=== PATIENT | male | born 1960 | race Caucasian/White ===

== ENCOUNTER 2022-03-19 21:33 | Emergency (ER) | payer OTHER, MEDICAID, SELFPAY ==
[2022-03-19 21:38] VITALS: BP 174/98; PULSE 100; RESP 16; TEMP 36.7; O2SAT 95
--- NOTE | 2022-03-19 21:58 | DI.RAD.S_ITS ---
PROCEDURE: XR CHEST 1V INDICATIONS: Eval for pneumonia TECHNIQUE: One view of the chest was acquired. COMPARISON: [facility], CHEST 1 VIEW, 11/22/2010, 14:57. [facility], CHEST 2 VIEW, 11/23/2010, 6:14. FINDINGS: Surgical changes and devices: None. Lungs and pleura: An incomplete inspiratory result is noted, causing a crowded appearance to the lung markings. No focal infiltrates are seen. No pneumothorax or significant pleural effusions are seen. Mediastinum: Mediastinal contours appear normal. Heart size is normal. Bones and chest wall: No suspicious bony lesions. Overlying soft tissues appear unremarkable. IMPRESSION: Low lung volumes, without focal infiltrates seen on this single view chest. Dictated by: Marlon Camilo M.D. on 03/19/2022 at 21:12 Approved by: Marlon Camilo M.D. on 03/19/2022 at 21:13
--- NOTE | 2022-03-19 22:26 | ED_ITS ---
HPI - General Adult General Chief complaint: Shortness of Breath/Dyspnea Stated complaint: sob, difficulty breathing Time Seen by Provider: 03/19/22 21:58 Source: patient Mode of arrival: Ambulatory History of Present Illness HPI narrative: 61-year-old male who is here for evaluation of fevers, productive cough, problems breathing for the past 24-48 hours. He also describes shortness of breath. No chest pain. No sinus congestion. No prior underlying lung pathology. Has not tried anything for symptoms prior to arrival Related Data Home Medications Medication Instructions Recorded Confirmed lisinopril PO 12/14/21 12/14/21 tamsulosin PO 12/14/21 12/14/21 Previous Rx's Medication Instructions Recorded azithromycin 250 mg tablet See Rx Instructions PO .COMPLEX 12/14/21 Pneumonia #6 tabs azithromycin 250 mg tablet 250 mg PO DAILY 4 days #4 tabs 03/19/22 Allergies Allergy/AdvReac Type Severity Reaction Status Date / Time No Known Drug Allergies Allergy Unverified 12/14/21 16:44 Review of Systems Constitutional Constitutional: Reports system reviewed and no additional complaints, except as documented ENT Ears, Nose, Mouth, and Throat: Reports system reviewed and no additional complaints, except as documented Cardiovascular Cardiovascular: Reports system reviewed and no additional complaints, except as documented Respiratory Respiratory: Reports system reviewed and no additional complaints, except as documented Patient History Social History Smoking Status: Current every day smoker alcohol intake: former Smoking Status: Current every day smoker tobacco type: cigarettes alcohol intake frequency: a few times a month Substance Use Type: marijuana Exam Initial Vital Signs Initial Vital Signs: Vital Signs Temperature 98.1 F 03/19/22 21:38 Pulse Rate 100 H 03/19/22 21:38 Respiratory Rate 16 03/19/22 21:38 Blood Pressure 174/98 H 03/19/22 21:38 Pulse Oximetry 95 03/19/22 21:38 Oxygen Delivery Method 03/19/22 21:38 HENMT Head: normal to inspection and normocephalic Resp Effort & Inspection: not labored, no respiratory distress and tachypneic Auscultation: rales, rhonchi and no wheezes Cardio Rate: regular rate Course Orders Ordered: ED Orders 03/19/22 21:58 XR chest 1V Stat Discontinued Medications Azithromycin (Azithromycin 250 Mg Tablet) 500 mg PO NOW ONE Stop: 03/19/22 22:28 Last Admin: 03/19/22 22:39 Dose: 500 mg Documented By: STEVEN Vital Signs Vital signs: Vital Signs - 8 hr 03/19/22 21:38 03/19/22 22:39 Temperature 98.1 F 97.8 F Pulse Rate 100 H 98 H Respiratory Rate 16 16 Blood Pressure 174/98 H 155/82 H Pulse Oximetry 95 94 Oxygen Delivery Method Room Air Room Air Medical Decision Making Differential Diagnosis Differential Diagnosis: Pneumonia, ACS, CHF, COPD, bronchitis, flu, and others Condition is:: Well Controlled Imaging Data Chest x-ray: Attestation: I personally reviewed and interpreted this imaging study as follows: My Impression: No focal infiltrates Radiologist's Impression: [address] [address] XRay Report Signed Patient: Anthony Sorto MR#: [id number] : 1960 Acct:[id number] Age/Sex: 61 / M Date of Service: 03/19/22 Loc: ED Accession Number: [id number] ?? Procedure: XR chest 1V Ordering Provider: Babatunde Vazquez D.O. PROCEDURE:? XR CHEST 1V ? INDICATIONS:? Eval for pneumonia ? TECHNIQUE:? One view of the chest was acquired.? ? COMPARISON:? [facility], CHEST 1 VIEW, 11/22/2010, 14:57.? [facility], CHEST 2 VIEW, 11/23/2010, 6:14. ? FINDINGS:? ? Surgical changes and devices:? None.? ? Lungs and pleura:? An incomplete inspiratory result is noted, causing a crowded appearance to the lung markings.? No focal infiltrates are seen.? No pneumothorax or significant pleural effusions are seen. ? ? Mediastinum:? Mediastinal contours appear normal.? Heart size is normal.? ? Bones and chest wall:? No suspicious bony lesions.? Overlying soft tissues appear unremarkable.? IMPRESSION:? Low lung volumes, without focal infiltrates seen on this single view chest. ? ? Dictated by: Marlon Camilo M.D. on 03/19/2022 at 21:12 ? ? Approved by: Marlon Camilo M.D. on 03/19/2022 at 21:13? [facility] Narrative Medical decision making narrative: Patient clinically has pneumonia with a fever, coarse breath sounds, cough and shortness of breath. He is not hypoxic. The chest x-ray shows no definitive infiltrate however given his clinical presentation we will treat him for presumed pneumonia clinically. He was given 1st dose of antibiotics here in the emergency department was sent home with a prescription for the remainder of the course. He was given strict return precautions. He expressed understanding and agreement. Discharge Plan Departure Patient Disposition: Home Clinical Impression: Pneumonia Instructions: DI for Pneumonia -- Adult Activity Restrictions/Additional Instructions: Based on your clinical presentation today we will treat you has a presumed pneumonia. You were given your 1st dose of antibiotics here in the emergency department. The remaining course was sent to the pharmacy of your choice. Please take it as directed. Contact your primary doctor for follow-up. Return to the emergency department for any new or worsening symptoms. Prescriptions: New azithromycin 250 mg tablet 250 mg PO DAILY 4 Days Qty: 4 0RF Rx Instructions: start on day 2 of therapy No Action lisinopril PO tamsulosin PO azithromycin 250 mg tablet See Rx Instructions PO .COMPLEX Qty: 6 0RF Rx Instructions: For 250 mg dose pack: take 500 mg today (day 1), then 250 mg for 4 days (days 2-5) PO Referrals: Miscellaneous,Doctor, MD [Primary Care Provider] - Stand Alone Forms: Patient Portal/API
[2022-03-19 22:39] VITALS: BP 155/82; PULSE 98; RESP 16; TEMP 36.6; O2SAT 94
[2022-03-19] MEDS: AZITHROMYCIN 250 MG TABLET 500 MG PO (22:39)
== END 2022-03-19 22:41 | disposition home or self-care (01) ==
PROVIDERS: Emergency Provider Emergency Medicine
DX: J18.9 Pneumonia, unspecified organism (principal); F17.200 Nicotine dependence, unspecified, uncomplicated
CPT/HCPCS: 71045; 99283

== ENCOUNTER → 2022-03-25 15:42 | Outpatient (CLI) | payer OTHER, MEDICAID, SELFPAY ==
[2022-03-25 17:16] LABS: Influenza A - CEPHEID Flu A NEGATIVE (NEGATIVE); Influenza B - CEPHEID Flu B NEGATIVE (NEGATIVE); Respiratory Syncytial Virus Negative (Negative)
[2022-03-25 17:26] LABS: COVID-19 CEPHEID 4-PLEX PCR Negative (Negative)
== END ==
PROVIDERS: Visit Provider Student in an Organized Health Care Education/Training Program
DX: J06.9 Acute upper respiratory infection, unspecified (principal); Z20.822 Contact with and (suspected) exposure to COVID-19
CPT/HCPCS: 0241U

== ENCOUNTER → 2022-03-25 15:58 | Outpatient (CLI) | payer OTHER, MEDICAID, SELFPAY ==
--- NOTE | 2022-03-25 16:00 | DI.RAD.S_ITS ---
PROCEDURE: XR CHEST 2V INDICATIONS: pain w/ inspiration, persistent cough despite Abx TECHNIQUE: 2 views of the chest were acquired. COMPARISON: [facility], , CHEST 1 VIEW, 11/22/2010, 14:57. [facility], , CHEST 2 VIEW, 11/23/2010, 6:14. Located [facility], , XR CHEST 1V, 03/19/2022, 21:57. FINDINGS: Surgical changes and devices: None. Lungs and pleura: Lungs are clear. No pleural effusions or pneumothorax. Mediastinum: Mediastinal contours are normal. Heart size is normal. Bones and chest wall: No suspicious bony abnormalities. Soft tissues appear unremarkable. IMPRESSION: No acute cardiopulmonary process is seen. No focal infiltrates are seen. No recurrent pneumothorax is seen. Dictated by: Marlon Camilo M.D. on 03/25/2022 at 15:29 Approved by: Marlon Camilo M.D. on 03/25/2022 at 15:30
[2022-03-25 16:15] LABS: Add Manual Diff / Slide Review NO; Basophils Absolute Auto 100 /uL (0-100); Basophils Percent Auto 1.2 % (0-2); Eosinophils Absolute Auto 300 /uL (0-450); Eosinophils Percent Auto 2.8 % (2-4); Hematocrit 46.7 % (41-53); Hemoglobin 15.6 g/dL (13.5-17.5); Lymphocytes Absolute Auto 2100 /uL (1100-4500); Lymphocytes Percent Auto 21.2 % (25-40); Mean Corpuscular HGB Conc 33.4 % (30-36); Mean Corpuscular Hemoglobin 28.5 PG (26-34); Mean Corpuscular Volume 85.5 fL (80-100); Monocytes Absolute Auto 700 /uL (0-900); Monocytes Percent Auto 6.7 % (3-14); Neutrophils Absolute Auto 6700 /uL (1500-7000); Neutrophils Percent Auto 68.1 % (50-75); Platelet Count 278 X10^3/uL (150-400); Red Blood Cell Count 5.46 X10^6/uL (4.5-5.9); Red Cell Distribution Width 13.6 % (11.6-14.8); White Blood Cell Count 9.8 X10^3/uL (4.5-11.0)
[2022-03-25 16:29] LABS: Alanine Aminotransferase 76 IU/L (<50); Albumin 4.5 g/dL (3.5-5.0); Alkaline Phosphatase 90 U/L (38-126); Aspartate Aminotransferase 50 IU/L (17-59); BUN Creatinine Ratio 20.2 (6-22); Bilirubin Total 0.4 mg/dL (0.2-1.3); Blood Urea Nitrogen 23 mg/dL (9-20); Calcium 9.5 mg/dL (8.4-10.2); Carbon Dioxide 27 mmol/L (22-32); Chloride 101 mmol/L (98-107); Creatine Kinase 304 U/L (55-170); Estimated Glomerular Filt Rate > 60 mL/min (>60); Globulin 4.7 g/dL (1.7-4.1); Glucose 99 mg/dL (70-100); HEMOLYSIS < 15 (0-50); Potassium 4.2 mmol/L (3.4-5.1); Sodium 140 mmol/L (137-145); Total Protein 9.2 g/dL (6.3-8.2)
[2022-03-25 16:41] LABS: Troponin I < 0.012 ng/mL (0.01-0.034)
[2022-03-25 16:44] LABS: CKMB % Relative Index 0.6 % (1.5-5.0); Creatine Kinase MB 1.92 ng/mL (<2.37)
[2022-03-25 16:46] LABS: Procalcitonin 0.06 ng/mL (<0.5)
== END ==
PROVIDERS: Referring Provider Student in an Organized Health Care Education/Training Program; Visit Provider Student in an Organized Health Care Education/Training Program
DX: J18.9 Pneumonia, unspecified organism (principal); R06.09 Other forms of dyspnea; R07.81 Pleurodynia; R00.0 Tachycardia, unspecified; R05.9 Cough, unspecified; R68.83 Chills (without fever); J06.9 Acute upper respiratory infection, unspecified; Z20.822 Contact with and (suspected) exposure to COVID-19
CPT/HCPCS: 0241U; 36415; 71046; 80053; 82550; 82553; 84145; 84484; 85025

== ENCOUNTER → 2022-04-22 12:34 | Outpatient (CLI) | payer OTHER, MEDICAID, SELFPAY ==
[2022-04-22 13:29] LABS: Influenza A - CEPHEID Flu A NEGATIVE (NEGATIVE); Influenza B - CEPHEID Flu B NEGATIVE (NEGATIVE); Respiratory Syncytial Virus Negative (Negative)
[2022-04-22 13:31] LABS: COVID-19 CEPHEID 4-PLEX PCR Negative (Negative)
== END ==
PROVIDERS: Visit Provider Student in an Organized Health Care Education/Training Program
DX: R05.9 Cough, unspecified (principal); R50.9 Fever, unspecified
CPT/HCPCS: 0241U

== ENCOUNTER 2022-04-22 12:44 | Emergency (ER) | payer OTHER, MEDICAID, SELFPAY ==
[2022-04-22 13:02] VITALS: BP 188/101; PULSE 89; RESP 17; TEMP 36.6; O2SAT 96; BMI 25.7
--- NOTE | 2022-04-22 13:03 | DI.RAD.S_ITS ---
PROCEDURE: XR CHEST 2V INDICATIONS: pneumonia vs CHF TECHNIQUE: 2 views of the chest were acquired. COMPARISON: [facility], , CHEST 2 VIEW, 11/23/2010, 6:14. [facility], CR, XR CHEST 1V, 03/19/2022, 21:57. [facility], CR, XR CHEST 2V, 03/25/2022, 16:00. FINDINGS: Surgical changes and devices: None. Lungs and pleura: Mild, streaky opacities are seen at the lung bases. No pleural effusions or pneumothorax. Mediastinum: Mediastinal contours are normal. Heart size is normal. Bones and chest wall: No suspicious bony abnormalities. Soft tissues appear unremarkable. IMPRESSION: Presumed atelectasis is seen at the lung bases. Differential diagnosis includes minimal/early infiltrate, yet this is considered to be less likely. No cardiomegaly. Dictated by: Marlon Camilo M.D. on 04/22/2022 at 12:22 Approved by: Marlon Camilo M.D. on 04/22/2022 at 12:23
--- NOTE | 2022-04-22 13:28 | ED.URI ---
HPI - URI/Sore Throat <Carol Jean Baptiste, [facility] - Last Filed: 04/22/22 18:28> General Chief Complaint: Upper Respiratory Symptoms Stated Complaint: sent by [facility] koko Time Seen by Provider: 04/22/22 13:03 Source: patient Mode of arrival: Ambulatory History of Present Illness HPI Narrative: This is a 52-year-old gentleman who presents to the emergency department complaining productive cough for the last 3 days with history of pneumonia yearly. He is a previous smoker who quit 3 weeks ago he states. He also has a history of chronic hypertension that is treated with lisinopril Anthony as a chronic history of hypertension that is untreated.?Today he is here evaluation of fevers, productive cough respiratory symptoms for the last 3 days. He endorses shortness of breath with coughing frequently, describes pleurisy without chest pain, diaphoresis, endorses chills at nighttime, has sinus congestion, no other prior underlying lung pathology. He is tried any medications for his symptoms yet. He is here from [place] where his primary care provider is and states that he is out of his Flomax and his lisinopril for hypertension. States he takes 5 mg daily of lisinopril, and 1 dose of Flomax daily but he endorses dysuria, urinary retention, endorses difficulty emptying today. Related Data Home Medications Medication Instructions Recorded Confirmed lisinopril PO 12/14/21 12/14/21 tamsulosin 0.4 mg capsule 0.4 mg PO DAILY 04/22/22 04/22/22 Previous Rx's Medication Instructions Recorded amoxicillin 875 mg-potassium 1 tab PO BID 5 days #10 tabs 04/22/22 clavulanate 125 mg tablet desloratadine 5 mg tablet 10 mg PO DAILY #20 tabs 04/22/22 (Clarinex) doxycycline hyclate 100 mg capsule 100 mg PO BID 5 days #10 caps 04/22/22 guaifenesin 1,200 mg tablet, 1,200 mg PO BID PRN cough #20 tabs 04/22/22 extended release 12 hr (Mucinex) lisinopril 5 mg tablet 5 mg PO BID 3 months #180 tabs 04/22/22 prednisone 50 mg tablet 50 mg PO DAILY #3 tabs 04/22/22 Allergies Allergy/AdvReac Type Severity Reaction Status Date / Time No Known Drug Allergies Allergy Verified 04/22/22 13:05 Review of Systems <JOSE ELIAS Fox - Last Filed: 04/22/22 18:28> Review of Systems ROS Unobtainable: All systems reviewed & are unremarkable except as noted in HPI and below Patient History <JOSE ELIAS Fox - Last Filed: 04/22/22 18:28> Social History Smoking Status: Current every day smoker alcohol intake: former Smoking Status: Current every day smoker tobacco type: cigarettes alcohol intake frequency: a few times a month Substance Use Type: marijuana Exam <JOSE ELIAS Fox - Last Filed: 04/22/22 18:28> Narrative Exam Narrative: Reviewed vitals signs and nursing notes. General: cooperative, uncomfortable, in no acute distress, productive cough, occasional chills, afebrile, rechecked BP 172/90 well groomed HEENT: symmetrical facial expressions, moist mucous membranes Cardiovascular: regular rate and rhythm, no peripheral edema, warm extremities Respiratory: Normal effort, tachypneic, bilateral bases with crackles anterior and posteriorly, mildly diminished in the right posterior, able to speak in complete sentences, without wheezes, or absent breath sounds, without retractions. No hypoxia, respiratory rate 22-24 GI: abdomen soft, nontender to palpation, nondistended, without masses, rebound tenderness or exquisite tenderness with exam. MSK: moves all extremities, neurovascularly intact, no weakness, normal tone Skin: brisk capillary refill, without pallor or erythema Neuro: normal speech and cognition, A&O x3, ambulatory, clear speech Psych: mental status is grossly normal, congruent mood, normal affect, pleasant and cooperative Initial Vital Signs Initial Vital Signs: Vital Signs Temperature 98 F 04/22/22 13:02 Pulse Rate 89 04/22/22 13:02 Respiratory Rate 17 04/22/22 13:02 Blood Pressure 188/101 H 04/22/22 13:02 Pulse Oximetry 96 04/22/22 13:02 Oxygen Delivery Method 04/22/22 13:02 <Babatunde Vazquez DO - Last Filed: 04/22/22 22:52> Initial Vital Signs Initial Vital Signs: Vital Signs Temperature 98 F 04/22/22 13:02 Pulse Rate 89 04/22/22 13:02 Respiratory Rate 17 04/22/22 13:02 Blood Pressure 188/101 H 04/22/22 13:02 Pulse Oximetry 96 04/22/22 13:02 Oxygen Delivery Method 04/22/22 13:02 Scores <JOSE ELIAS Fox - Last Filed: 04/22/22 18:28> CURB-65 Confusion: No BUN >19mg/dL (>7mmol/L): No Respiratory rate greater or equal to 30: No SBP <90mmHg or DBP less or equal to 60mmHg: No Age 65 or Older: No CURB-65 Total: 0 Score 0-1 Outpatient care, Score 2 Inpt vs. Obs, Score 3 or over Inpt admit with ICU for score of 4-5 <Babatunde Vazquez DO - Last Filed: 04/22/22 22:52> CURB-65 CURB-65 Total: 0 Course <JOSE ELIAS Fox - Last Filed: 04/22/22 18:28> Orders Ordered: ED Orders 04/22/22 14:24 BNP [NT-proBNP (BNP-Adult 18+)] Stat CBC Auto Diff [Complete Blood Count AUTO DIFF] Stat CMP [Comprehensive Metabolic Panel] Stat CRP [C-Reactive Protein Quant] Stat Lactate (Lactic Acid) Stat Procalcitonin Stat 04/22/22 14:30 Urine Culture Stat Urine Microscopic Stat Discontinued Medications Amoxicillin/Clavulanate Potassium (Amoxicillin/Clav 875/125 Mg) 1 tab PO NOW ONE Stop: 04/22/22 13:38 Last Admin: 04/22/22 14:31 Dose: 1 tab Documented By: NR Doxycycline Hyclate (Doxycycline Hyclate 100 Mg Tablet) 100 mg PO NOW ONE Stop: 04/22/22 13:38 Last Admin: 04/22/22 14:31 Dose: 100 mg Documented By: NR Guaifenesin (Guaifenesin Er 600 Mg Tab) 600 mg PO NOW ONE Stop: 04/22/22 13:38 Last Admin: 04/22/22 14:31 Dose: 600 mg Documented By: NR Lisinopril (Lisinopril 5 Mg Tablet) 5 mg PO NOW ONE Stop: 04/22/22 13:38 Last Admin: 04/22/22 14:31 Dose: 5 mg Documented By: NR Prednisone (Prednisone 20 Mg Tablet) 60 mg PO NOW ONE Stop: 04/22/22 13:38 Last Admin: 04/22/22 14:31 Dose: 60 mg Documented By: NR Tamsulosin HCl (Tamsulosin 0.4 Mg Capsule) 0.4 mg PO NOW ONE Stop: 04/22/22 13:38 Last Admin: 04/22/22 14:31 Dose: 0.4 mg Documented By: NR Vital Signs Vital signs: Vital Signs - 8 hr 04/22/22 13:02 04/22/22 13:30 04/22/22 13:36 Temperature 98 F Pulse Rate 89 93 H Respiratory Rate 17 Blood Pressure 188/101 H 174/87 H Pulse Oximetry 96 96 Oxygen Delivery Method Room Air 04/22/22 13:36 04/22/22 14:00 04/22/22 14:00 Temperature Pulse Rate 90 89 Respiratory Rate 24 25 H Blood Pressure 181/87 H Pulse Oximetry 96 92 Oxygen Delivery Method 04/22/22 14:09 04/22/22 14:09 04/22/22 14:30 Temperature Pulse Rate 91 H 103 H Respiratory Rate 29 H 43 H Blood Pressure 167/81 H Pulse Oximetry 93 Oxygen Delivery Method <Babatunde Vazquez DO - Last Filed: 04/22/22 22:52> Orders Ordered: ED Orders 04/22/22 14:24 BNP [NT-proBNP (BNP-Adult 18+)] Stat CBC Auto Diff [Complete Blood Count AUTO DIFF] Stat CMP [Comprehensive Metabolic Panel] Stat CRP [C-Reactive Protein Quant] Stat Lactate (Lactic Acid) Stat Procalcitonin Stat 04/22/22 14:30 Urine Culture Stat Urine Microscopic Stat Discontinued Medications Amoxicillin/Clavulanate Potassium (Amoxicillin/Clav 875/125 Mg) 1 tab PO NOW ONE Stop: 04/22/22 13:38 Last Admin: 04/22/22 14:31 Dose: 1 tab Documented By: NR Doxycycline Hyclate (Doxycycline Hyclate 100 Mg Tablet) 100 mg PO NOW ONE Stop: 04/22/22 13:38 Last Admin: 04/22/22 14:31 Dose: 100 mg Documented By: NR Guaifenesin (Guaifenesin Er 600 Mg Tab) 600 mg PO NOW ONE Stop: 04/22/22 13:38 Last Admin: 04/22/22 14:31 Dose: 600 mg Documented By: NR Lisinopril (Lisinopril 5 Mg Tablet) 5 mg PO NOW ONE Stop: 04/22/22 13:38 Last Admin: 04/22/22 14:31 Dose: 5 mg Documented By: NR Prednisone (Prednisone 20 Mg Tablet) 60 mg PO NOW ONE Stop: 04/22/22 13:38 Last Admin: 04/22/22 14:31 Dose: 60 mg Documented By: NR Tamsulosin HCl (Tamsulosin 0.4 Mg Capsule) 0.4 mg PO NOW ONE Stop: 04/22/22 13:38 Last Admin: 04/22/22 14:31 Dose: 0.4 mg Documented By: NR Vital Signs Vital signs: Vital Signs - 8 hr 04/22/22 13:02 04/22/22 13:30 04/22/22 13:36 Temperature 98 F Pulse Rate 89 93 H Respiratory Rate 17 Blood Pressure 188/101 H 174/87 H Pulse Oximetry 96 96 Oxygen Delivery Method Room Air 04/22/22 13:36 04/22/22 14:00 04/22/22 14:00 Temperature Pulse Rate 90 89 Respiratory Rate 24 25 H Blood Pressure 181/87 H Pulse Oximetry 96 92 Oxygen Delivery Method 04/22/22 14:09 04/22/22 14:09 04/22/22 14:30 Temperature Pulse Rate 91 H 103 H Respiratory Rate 29 H 43 H Blood Pressure 167/81 H Pulse Oximetry 93 Oxygen Delivery Method MDM - URI/Sore Throat <ABAD FoxP - Last Filed: 04/22/22 18:28> Lab Data 04/22/22 14:24 04/22/22 14:24 Labs: Lab Results 04/22/22 04/22/22 04/22/22 Range/Units 14:24 14:24 14:24 WBC 11.5 H (4.5-11.0) X10^3/uL RBC 5.01 (4.5-5.9) X10^6/uL Hgb 14.1 (13.5-17.5) g/dL Hct 43.0 (41-53) % MCV 85.8 (80-100) fL MCH 28.1 (26-34) PG MCHC 32.7 (30-36) % RDW 14.4 (11.6-14.8) % Plt Count 202 (150-400) X10^3/uL Neut % (Auto) 73.6 (50-75) % Lymph % (Auto) 12.7 L (25-40) % [place] % (Auto) 9.8 (3-14) % Eos % (Auto) 3.1 (2-4) % Baso % (Auto) 0.8 (0-2) % Neut # (Auto) 8500 H (8828-4635) /uL Lymph # (Auto) 1500 (0181-2079) /uL [place] # (Auto) 1100 H (0-900) /uL Eos # (Auto) 400 (0-450) /uL Baso # (Auto) 100 (0-100) /uL Sodium 139 (137-145) mmol/L Potassium 3.9 (3.4-5.1) mmol/L Chloride 101 (98-107) mmol/L Carbon Dioxide 28 (22-32) mmol/L BUN 16 (9-20) mg/dL Creatinine 0.96 (0.66-1.25) mg/dL Estimated GFR > 60 (>60) mL/min BUN/Creatinine Ratio 16.7 (6-22) Glucose 96 (70-100) mg/dL Lactate 0.7 (0.7-2.1) mmol/L Calcium 9.0 (8.4-10.2) mg/dL Total Bilirubin 0.4 (0.2-1.3) mg/dL AST 23 (17-59) IU/L ALT 25 (<50) IU/L Alkaline Phosphatase 87 (38-126) U/L C-Reactive Protein 6.0 H (<1.0) mg/dL NT-Pro-B Natriuret Pep 450 H (<125) pg/mL Total Protein 8.2 (6.3-8.2) g/dL Albumin 4.2 (3.5-5.0) g/dL Globulin 4.0 (1.7-4.1) g/dL Albumin/Globulin Ratio 1.1 (1.0-2.8) Procalcitonin 0.06 (<0.5) ng/mL Urine RBC (0-5/HPF) Urine WBC (0-5/HPF) Amorphous Sediment Urine Bacteria (None) Urine Mucus (Negative) Ur Culture Indicated? 04/22/22 Range/Units 14:30 WBC (4.5-11.0) X10^3/uL RBC (4.5-5.9) X10^6/uL Hgb (13.5-17.5) g/dL Hct (41-53) % MCV (80-100) fL MCH (26-34) PG MCHC (30-36) % RDW (11.6-14.8) % Plt Count (150-400) X10^3/uL Neut % (Auto) (50-75) % Lymph % (Auto) (25-40) % [place] % (Auto) (3-14) % Eos % (Auto) (2-4) % Baso % (Auto) (0-2) % Neut # (Auto) (0377-3380) /uL Lymph # (Auto) (2917-6761) /uL [place] # (Auto) (0-900) /uL Eos # (Auto) (0-450) /uL Baso # (Auto) (0-100) /uL Sodium (137-145) mmol/L Potassium (3.4-5.1) mmol/L Chloride (98-107) mmol/L Carbon Dioxide (22-32) mmol/L BUN (9-20) mg/dL Creatinine (0.66-1.25) mg/dL Estimated GFR (>60) mL/min BUN/Creatinine Ratio (6-22) Glucose (70-100) mg/dL Lactate (0.7-2.1) mmol/L Calcium (8.4-10.2) mg/dL Total Bilirubin (0.2-1.3) mg/dL AST (17-59) IU/L ALT (<50) IU/L Alkaline Phosphatase (38-126) U/L C-Reactive Protein (<1.0) mg/dL NT-Pro-B Natriuret Pep (<125) pg/mL Total Protein (6.3-8.2) g/dL Albumin (3.5-5.0) g/dL Globulin (1.7-4.1) g/dL Albumin/Globulin Ratio (1.0-2.8) Procalcitonin (<0.5) ng/mL Urine RBC 1-5/hpf (0-5/HPF) Urine WBC 0-1/hpf (0-5/HPF) Amorphous Sediment 1+ Urine Bacteria None seen (None) Urine Mucus 1+ H (Negative) Ur Culture Indicated? Cult not indicated Urine Dip Bedside Urine Glucose Negative Bedside Urine Bilirubin - Negative Bedside Urine Ketone - Negative Urine Specific [place] 1.025 Bedside Urine Occult Blood + Bedside Urine pH 6.0 Bedside Urine Protein + 30 Bedside Urine Urobilinogen - Negative Bedside Urine Nitrite - Negative Bedside Urine Leukocytes - Negative Esterase Imaging Data Chest x-ray: Radiologist's Impression: PROCEDURE:? XR CHEST 2V ? INDICATIONS:? pneumonia vs CHF ? TECHNIQUE:? 2 views of the chest were acquired.? ? COMPARISON:? [facility], CR, CHEST 2 VIEW, 11/23/2010, 6:14.? [facility], CR, XR CHEST 1V, 03/19/2022, 21:57.? [facility], CR, XR CHEST 2V, 03/25/2022, 16:00. ? FINDINGS:? ? Surgical changes and devices:? None.? ? Lungs and pleura:? Mild, streaky opacities are seen at the lung bases.? No pleural effusions or pneumothorax.? ? Mediastinum:? Mediastinal contours are normal.? Heart size is normal.? ? Bones and chest wall:? No suspicious bony abnormalities.? Soft tissues appear unremarkable.? IMPRESSION:? Presumed atelectasis is seen at the lung bases.? Differential diagnosis includes minimal/early infiltrate, yet this is considered to be less likely. ? No cardiomegaly. ?? Dictated by: Marlon Camilo M.D. on 04/22/2022 at 12:22 ? ? Approved by: Marlon Camilo M.D. on 04/22/2022 at 12:23 ? MDM Narrative Medical decision making narrative: Chief Complaint:cough, concern for pneumonia? Independent historian: Patient Differential diagnoses include but are not limited to: viral respiratory infection, bronchitis, pneumonia-bacterial or viral, pertussis, asthma/reactive airway exacerbation, allergic reaction, acute otitis media, pharyngitis, bronchitis, GERD, low suspicion for ACS, CHF exacerbation or pleural effusions, prostatitis, urinary tract infection, proctocolitis, BPH Pertinent lab findings reviewed: Respiratory PCR: Negative tested viruses mild leukocytosis of 11.5 with elevated neutrophils of 8500, no gross electrolyte abnormalities, creatinine is 0.96 without decreased GFR, total bilirubin is 0.4, CRP is elevated at 6.0, BNP is 450 without priors to compare to, UA is negative for WBCs, RBCs and bacteria on microscopy, respiratory PCR is negative for COVID, influenza a, B and RSV Pertinent imaging reviewed: 2 view Chest x-ray shows atelectasis in bilateral bases and is consistent with his exam was crackles in bilateral bases and decreased breath sounds lower left lobe posteriorly Do not suspect underlying cardiac process. Patient is nontoxic appearing and not in need of emergent medical intervention. I have independently reviewed the patient's vital signs and nursing notes as well as prior records if available. Clinical decision rules or scores evaluated: CURB 65 shows that patient is appropriate for outpatient care Course of care: Patient has crackles in bilateral bases, tachypnea without hypoxia or increased work of breathing. Does. Was treated with 60 mg of prednisone today for history of smoking with concern for COPD, ordered for him his tamsulos and lisinopril per his request since his medications are gone. His pneumonia in the emergency department was treated with Augmentin and doxycycline but after further review, patient discussed having urinary retention and urine dip showed blood in his UA so concern was for prostatitis. Changed his prescription to Levaquin and treated him for 7 days of 750 mg daily. Pharmacy was updated, patient will continue on prednisone 50 mg x 3 days and 25 mg for 2 days. His discharge blood pressure came down, his respiratory rate was not 43 on my last exam it was 22. Patient's UA came back negative for abnormality other than some mucus. He was given strict return precautions, prescribed for him antihistamine, antibiotics, Mucinex for productive cough, lisinopril and tamsulosin for his chronic conditions. Social considerations that may affect disposition: none Questions are addressed and there is agreement with the plan and for follow-up. Patient is appropriate for outpatient management. MIPS: This encounter doesn't have any diagnosis' associated with MIPS criteria. <Babatunde Vazquez DO - Last Filed: 04/22/22 22:52> Lab Data Labs: Lab Results 04/22/22 04/22/22 04/22/22 Range/Units 14:24 14:24 14:24 WBC 11.5 H (4.5-11.0) X10^3/uL RBC 5.01 (4.5-5.9) X10^6/uL Hgb 14.1 (13.5-17.5) g/dL Hct 43.0 (41-53) % MCV 85.8 (80-100) fL MCH 28.1 (26-34) PG MCHC 32.7 (30-36) % RDW 14.4 (11.6-14.8) % Plt Count 202 (150-400) X10^3/uL Neut % (Auto) 73.6 (50-75) % Lymph % (Auto) 12.7 L (25-40) % [place] % (Auto) 9.8 (3-14) % Eos % (Auto) 3.1 (2-4) % Baso % (Auto) 0.8 (0-2) % Neut # (Auto) 8500 H (7145-4939) /uL Lymph # (Auto) 1500 (2626-2472) /uL [place] # (Auto) 1100 H (0-900) /uL Eos # (Auto) 400 (0-450) /uL Baso # (Auto) 100 (0-100) /uL Sodium 139 (137-145) mmol/L Potassium 3.9 (3.4-5.1) mmol/L Chloride 101 (98-107) mmol/L Carbon Dioxide 28 (22-32) mmol/L BUN 16 (9-20) mg/dL Creatinine 0.96 (0.66-1.25) mg/dL Estimated GFR > 60 (>60) mL/min BUN/Creatinine Ratio 16.7 (6-22) Glucose 96 (70-100) mg/dL Lactate 0.7 (0.7-2.1) mmol/L Calcium 9.0 (8.4-10.2) mg/dL Total Bilirubin 0.4 (0.2-1.3) mg/dL AST 23 (17-59) IU/L ALT 25 (<50) IU/L Alkaline Phosphatase 87 (38-126) U/L C-Reactive Protein 6.0 H (<1.0) mg/dL NT-Pro-B Natriuret Pep 450 H (<125) pg/mL Total Protein 8.2 (6.3-8.2) g/dL Albumin 4.2 (3.5-5.0) g/dL Globulin 4.0 (1.7-4.1) g/dL Albumin/Globulin Ratio 1.1 (1.0-2.8) Procalcitonin 0.06 (<0.5) ng/mL Urine RBC (0-5/HPF) Urine WBC (0-5/HPF) Amorphous Sediment Urine Bacteria (None) Urine Mucus (Negative) Ur Culture Indicated? 04/22/22 Range/Units 14:30 WBC (4.5-11.0) X10^3/uL RBC (4.5-5.9) X10^6/uL Hgb (13.5-17.5) g/dL Hct (41-53) % MCV (80-100) fL MCH (26-34) PG MCHC (30-36) % RDW (11.6-14.8) % Plt Count (150-400) X10^3/uL Neut % (Auto) (50-75) % Lymph % (Auto) (25-40) % [place] % (Auto) (3-14) % Eos % (Auto) (2-4) % Baso % (Auto) (0-2) % Neut # (Auto) (2124-3840) /uL Lymph # (Auto) (3342-4939) /uL [place] # (Auto) (0-900) /uL Eos # (Auto) (0-450) /uL Baso # (Auto) (0-100) /uL Sodium (137-145) mmol/L Potassium (3.4-5.1) mmol/L Chloride (98-107) mmol/L Carbon Dioxide (22-32) mmol/L BUN (9-20) mg/dL Creatinine (0.66-1.25) mg/dL Estimated GFR (>60) mL/min BUN/Creatinine Ratio (6-22) Glucose (70-100) mg/dL Lactate (0.7-2.1) mmol/L Calcium (8.4-10.2) mg/dL Total Bilirubin (0.2-1.3) mg/dL AST (17-59) IU/L ALT (<50) IU/L Alkaline Phosphatase (38-126) U/L C-Reactive Protein (<1.0) mg/dL NT-Pro-B Natriuret Pep (<125) pg/mL Total Protein (6.3-8.2) g/dL Albumin (3.5-5.0) g/dL Globulin (1.7-4.1) g/dL Albumin/Globulin Ratio (1.0-2.8) Procalcitonin (<0.5) ng/mL Urine RBC 1-5/hpf (0-5/HPF) Urine WBC 0-1/hpf (0-5/HPF) Amorphous Sediment 1+ Urine Bacteria None seen (None) Urine Mucus 1+ H (Negative) Ur Culture Indicated? Cult not indicated Urine Dip Bedside Urine Glucose Negative Bedside Urine Bilirubin - Negative Bedside Urine Ketone - Negative Urine Specific [place] 1.025 Bedside Urine Occult Blood + Bedside Urine pH 6.0 Bedside Urine Protein + 30 Bedside Urine Urobilinogen - Negative Bedside Urine Nitrite - Negative Bedside Urine Leukocytes - Negative Esterase Discharge Plan Departure Patient Disposition: Home Clinical Impression: History of smoking, History of BPH Pneumonia Qualifiers: Pneumonia type: due to unspecified organism Laterality: bilateral Lung location: lower lobe of lung Qualified Code(s): J18.9 - Pneumonia, unspecified organism Instructions: Pneumonia-Adult Activity Restrictions/Additional Instructions: *You have been diagnosed with pneumonia. We will call you if urine shows infection if you need an antibiotic change. Please return to the emergency department if you do not get better soon. Take the medications as prescribed, please establish care with 1 of the primary care providers so that you have follow-up. Stay hydrated take Tylenol and ibuprofen as needed for pain and fever. Kind of sick this time. Please come in sooner next time I am sorry for your symptoms. Your COVID, influenza and RSV test was negative today. *What to do: *Please continue to take your regular medications as directed. [ x] New medication prescriptions sent to your pharmacy: [ [facility]] [ ] New medication written as a paper prescription [ ] No new medications given *Please follow up with your primary care provider in 2-3 days, call for an appointment. Let them know you were seen in the Emergency Department and that we asked that you be seen for follow-up. We will electronically transmit a record of today's note if your PCP is in our system *If you do not have a primary care provider please contact [phone] to establish care with one of the [facility] primary care providers. *Return to Emergency Department if you should have any new, worsening, or concerning symptoms, such as [fever greater than 101F, chills, worsening pain, persistent vomiting or other bothersome symptoms]. Prescriptions: New lisinopril 5 mg tablet 5 mg PO BID 90 Days Qty: 180 0RF prednisone 50 mg tablet 50 mg PO DAILY Qty: 3 0RF Rx Instructions: Please take 50 mg for 2 days, and 25 mg for the following 2 days Mucinex 1,200 mg tablet extended release 12hr 1,200 mg PO BID PRN (Reason: cough) Qty: 20 0RF amoxicillin-pot clavulanate 875-125 mg tablet 1 tab PO BID 5 Days Qty: 10 0RF doxycycline hyclate 100 mg capsule 100 mg PO BID 5 Days Qty: 10 0RF desloratadine [Clarinex] 5 mg tablet 10 mg PO DAILY Qty: 20 0RF No Action lisinopril PO tamsulosin 0.4 mg capsule 0.4 mg PO DAILY Label Comments: TAKE 1 CAPSULE BY MOUTH EACH EVENING Referrals: Miscellaneous,Doctor, MD [Primary Care Provider] - Stand Alone Forms: Patient Portal/API
[2022-04-22 13:30] VITALS: PULSE 93; O2SAT 96
[2022-04-22 13:36] VITALS: BP 174/87; PULSE 90; RESP 24; O2SAT 96
[2022-04-22 14:00] VITALS: BP 181/87; PULSE 89; RESP 25; O2SAT 92
[2022-04-22 14:09] VITALS: BP 167/81; PULSE 91; RESP 29; O2SAT 93
[2022-04-22 14:30] VITALS: PULSE 103; RESP 43
[2022-04-22] MEDS: DOXYCYCLINE HYCLATE 100 MG TABLET PO (14:31)
[2022-04-22] MEDS: lisinopriL 5 MG TABLET PO (14:31)
[2022-04-22] MEDS: predniSONE 20 MG TABLET 60 MG PO (14:31)
[2022-04-22] MEDS: TAMSULOSIN 0.4 MG CAPSULE PO (14:31)
[2022-04-22] MEDS: guaiFENesin ER 600 MG TAB PO (14:31)
[2022-04-22] MEDS: AMOXICILLIN/CLAV 875/125 MG 1 TAB PO (14:31)
--- NOTE | 2022-04-22 14:34 | PC.NURSE ---
pt assessment done by provider.
[2022-04-22 14:38] LABS: Add Manual Diff / Slide Review NO; Basophils Absolute Auto 100 /uL (0-100); Basophils Percent Auto 0.8 % (0-2); Eosinophils Absolute Auto 400 /uL (0-450); Eosinophils Percent Auto 3.1 % (2-4); Hemoglobin 14.1 g/dL (13.5-17.5); Lymphocytes Absolute Auto 1500 /uL (1100-4500); Lymphocytes Percent Auto 12.7 % (25-40); Mean Corpuscular HGB Conc 32.7 % (30-36); Mean Corpuscular Hemoglobin 28.1 PG (26-34); Mean Corpuscular Volume 85.8 fL (80-100); Monocytes Absolute Auto 1100 /uL (0-900); Monocytes Percent Auto 9.8 % (3-14); Neutrophils Absolute Auto 8500 /uL (1500-7000); Neutrophils Percent Auto 73.6 % (50-75); Platelet Count 202 X10^3/uL (150-400); Red Blood Cell Count 5.01 X10^6/uL (4.5-5.9); Red Cell Distribution Width 14.4 % (11.6-14.8); White Blood Cell Count 11.5 X10^3/uL (4.5-11.0)
[2022-04-22 14:45] LABS: Lactate (Lactic Acid) 0.7 mmol/L (0.7-2.1)
[2022-04-22 14:47] LABS: Alanine Aminotransferase 25 IU/L (<50); Albumin 4.2 g/dL (3.5-5.0); Albumin Globulin Ratio 1.1 (1.0-2.8); Alkaline Phosphatase 87 U/L (38-126); Aspartate Aminotransferase 23 IU/L (17-59); BUN Creatinine Ratio 16.7 (6-22); Bilirubin Total 0.4 mg/dL (0.2-1.3); Blood Urea Nitrogen 16 mg/dL (9-20); Carbon Dioxide 28 mmol/L (22-32); Chloride 101 mmol/L (98-107); Estimated Glomerular Filt Rate > 60 mL/min (>60); Glucose 96 mg/dL (70-100); HEMOLYSIS < 15 (0-50); Potassium 3.9 mmol/L (3.4-5.1); Sodium 139 mmol/L (137-145); Total Protein 8.2 g/dL (6.3-8.2)
[2022-04-22 14:53] LABS: NT-proBNP (BNP-Adult 18+) 450 pg/mL (<125)
[2022-04-22 14:57] LABS: Amorphous Sediment Urine 1+; Bacteria Urine None Seen; Culture Indicated Urine Cult Not Indicated; Mucus Urine 1+ (Negative); RBC Urine 1-5/HPF (0-5/HPF); WBC Urine 0-1/HPF (0-5/HPF)
[2022-04-22 15:01] LABS: Procalcitonin 0.06 ng/mL (<0.5)
== END 2022-04-22 14:53 | disposition home or self-care (01) ==
PROVIDERS: Emergency Provider Nurse Practitioner Critical Care Medicine
DX: J18.9 Pneumonia, unspecified organism (principal); Z87.891 Personal history of nicotine dependence; Z87.438 Personal history of other diseases of male genital organs; Z79.899 Other long term (current) drug therapy; Z20.822 Contact with and (suspected) exposure to COVID-19; R05.9 Cough, unspecified; R50.9 Fever, unspecified
CPT/HCPCS: 0241U; 36415; 71046; 80053; 81003; 81015; 83605; 83880; 84145; 85025; 86140; 87086; 99284